=== PATIENT | male | born 1965 | race Caucasian/White ===

== ENCOUNTER 2020-12-13 10:28 | Emergency (ER) | payer OTHER ==
[~2020-12-13] VITALS: Ht 170.2 cm; Wt 89.1 kg
[~2020-12-13 10:28] MED LIST: DELZICOL400 MG PO; FLAGYL500 MG PO; K-TAB10 MEQ PO; LISINOPRIL5 MG PO; MOBIC7.5 MG PO; PROZAC40 MG PO; SOMA350 MG PO; XANAX0.5 MG PO
[2020-12-13 10:36] VITALS: BP 133/68; Ht 170.2 cm; Wt 89.1 kg
[2020-12-13] MEDS ORDERED: APRISO0.375 GM PO (10:40)
[2020-12-13] MEDS ORDERED: INDERAL 40 MG T40 MG PO (10:42)
[2020-12-13] MEDS ORDERED: MIRALAX17 GM PO (10:43)
[2020-12-13] MEDS ORDERED: ABILIFY10 MG PO (10:44)
[2020-12-13] MEDS ORDERED: TYLENOL W/CODEI1 TAB PO (10:46)
[2020-12-13] MEDS ORDERED: MYSOLINE 50 MG50 MG PO (10:47)
[2020-12-13] MEDS ORDERED: WELLBUTRIN SR150 MG PO (10:48)
[2020-12-13] MEDS ORDERED: CARBIDOPA-LEVO1 EAC2 PO (10:49)
[2020-12-13] MEDS ORDERED: TESTOSTERONE CYPIONA IJ (10:52)
[2020-12-13] MEDS ORDERED: KLONOPIN1 MG PO (10:52)
[2020-12-13] MEDS ORDERED: ADCIRCA20 MG PO (10:53)
[2020-12-13 11:58] LABS: ANION GAP 11.5 mmol/L (8-16); CALCIUM 8.9 mg/dL (8.5-10.1); CARBON DIOXIDE 28.4 mmol/L (21.0-32.0); CREATININE - SERUM 1.2 mg/dL (0.6-1.3); POTASSIUM - SERUM 3.9 mmol/L (3.5-5.1)
[2020-12-13 12:01] LABS: NITRITE NEGATIVE (NEGATIVE)
[2020-12-13 12:02] LABS: BILIRUBIN NEGATIVE (NEGATIVE); KETONE NEGATIVE (NEGATIVE); UROBILINOGEN NORMAL mg/dL (< 2)
[2020-12-13 12:03] LABS: BASOPHILS 0.4 % (0-2); EOSINOPHILS 2.5 % (0-7); HEMATOCRIT 45.3 % (42.0-54.0); HEMOGLOBIN 15.7 g/dL (13.5-17.5); IMMATURE GRANULOCYTES 0.1 % (0-5); LYMPHOCYTE ABS# 2.61 10x3/uL (1.32-3.57); LYMPHOCYTES 36.9 % (15-50); MCH 30.2 pg (26.0-34.0); MCHC 34.7 g/dL (31.0-37.0); MCV 87.1 fL (80.0-100.0); MEAN PLATELET VOLUME 9.4 fL (7.4-10.4); MONOCYTES 5.8 % (2-11); NEUTROPHIL ABS# 3.83 10x3/uL (1.78-5.38); NEUTROPHILS 54.3 % (40-80); PLATELET COUNT 231 10x3/uL (130-400); RDW 12.3 % (11.5-14.5); WBC 7.1 10x3/uL (4.8-10.8)
[2020-12-13 12:04] LABS: ALBUMIN 4.3 g/dL (3.4-5.0); BILIRUBIN - TOTAL 0.99 mg/dL (0.2-1.3); MAGNESIUM - SERUM 2.5 mg/dL (1.8-2.4); PROTEIN - SERUM 8.2 g/dL (6.4-8.2)
[2020-12-13 12:05] LABS: UDS - AMPHET NEGATIVE QUAL (NEGATIVE); UDS - BARB NEGATIVE QUAL (NEGATIVE); UDS - BENZO NEGATIVE QUAL (NEGATIVE); UDS - COCAINE NEGATIVE QUAL (NEGATIVE); UDS - OPIATE POSITIVE QUAL (NEGATIVE); UDS - PCP NEGATIVE QUAL (NEGATIVE); UDS - THC POSITIVE QUAL (NEGATIVE)
--- NOTE | 2020-12-13 14:30 | NUR ---
DR. GAITAN NOTIFIED AND REVIEWED PT'S BEHAVIOR AND ASSESSMENT RESULTS. PT IS A MODERATE RISK PER DR. GAITAN. DR. GAITAN STATED TO GIVE RESOURCES TO PT AT TIME OF DISCHARGE. NO FURTHER ORDERS AT THIS TIME. RESOURCES REVIEWED WITH PT AND HE VERBALIZIED UNDERSTANDING.
== END 2020-12-13 14:02 | disposition home or self-care (01) ==
LOC: D.ER 10:28
PROVIDERS: Emergency Medicine
DX: R45.851 Suicidal ideations (principal); G20 Parkinson's disease; I10 Essential (primary) hypertension